=== PATIENT | male | born 1965 | race Caucasian/White ===

== ENCOUNTER → 2021-11-29 11:02 | Outpatient (CLI) | payer SELFPAY ==
[2021-11-29 20:13] LABS: Free T3, Triiodothyronine Free 3.58 pg/mL (2.77-5.27)
[2021-11-29 20:27] LABS: TSH w/ Reflex to FT4 0.46 uIU/mL (0.47-4.68)
[2021-11-30 01:41] LABS: Free T4, Direct Thyroxine 1.53 ng/dL (0.78-2.19)
== END ==
PROVIDERS: Family Provider Family Medicine; PCP Family Medicine; Visit Provider Physician Assistant Medical
DX: I63.9 Cerebral infarction, unspecified (principal); F41.9 Anxiety disorder, unspecified
CPT/HCPCS: 84439; 84443; 84481

== ENCOUNTER → 2023-07-02 11:28 | Outpatient (CLI) | payer SELFPAY ==
--- NOTE | 2023-07-02 11:30 | DI.US.S_ITS ---
PROCEDURE: US SCROTUM INDICATIONS: TESTICULAR SWELLING TECHNIQUE: Real-time scanning was performed of the scrotum and testicles, with image documentation. Color and pulse Doppler interrogation was performed of both testicles. COMPARISON: None. FINDINGS: Right: Testicle is normal in size at 3.2 x 2.0 x 2.9 cm, and homogenous in echotexture. Epididymis is normal in overall size and morphology. Small hydrocele. No varicocele. Overlying scrotal skin is normal in thickness. Left: Testicle is normal in size at 3.2 x 2.1 x 2.6 cm, and homogeneous in echotexture. Epididymis is normal in overall size and morphology. Left epididymal cyst measuring 3 mm Small hydrocele. No varicocele. Overlying scrotal skin is normal in thickness. Doppler: Color and pulse Doppler demonstrate normal and symmetric arterial flow in both testicles. IMPRESSION: 1. Sub 5 mm left epididymal cyst; otherwise normal appearance of the testicles bilaterally. 2. Small bilateral hydroceles. Dictated by: Bi VILLAFUERTE Interpreted: Deangelo Turner MD on 07/02/2023 at 12:44 Transcribed by: [email or web address] on 07/02/2023 at 12:44 Approved by: Deangelo Turner M.D. on 07/02/2023 at 16:22
== END ==
PROVIDERS: Family Provider Family Medicine; PCP Physician Assistant Medical; Referring Provider Physician Assistant Medical; Visit Provider Physician Assistant Medical
DX: N50.3 Cyst of epididymis (principal); N43.3 Hydrocele, unspecified; N50.89 Other specified disorders of the male genital organs
CPT/HCPCS: 76870

== ENCOUNTER → 2023-07-09 08:30 | Outpatient (CLI) | payer SELFPAY ==
[2023-07-09 20:00] LABS: Add Manual Diff / Slide Review NO; Basophils Absolute Auto 0 /uL (0-100); Basophils Percent Auto 0.4 % (0-2); Eosinophils Absolute Auto 200 /uL (0-450); Eosinophils Percent Auto 3.9 % (2-4); Hematocrit 45.2 % (41-53); Hemoglobin 15.5 g/dL (13.5-17.5); Lymphocytes Absolute Auto 1900 /uL (1100-4500); Lymphocytes Percent Auto 33.3 % (25-40); Mean Corpuscular HGB Conc 34.4 % (30-36); Mean Corpuscular Hemoglobin 30.7 PG (26-34); Mean Corpuscular Volume 89.2 fL (80-100); Monocytes Absolute Auto 500 /uL (0-900); Monocytes Percent Auto 8.7 % (3-14); Neutrophils Absolute Auto 3100 /uL (1500-7000); Neutrophils Percent Auto 53.7 % (50-75); Platelet Count 208 X10^3/uL (150-400); Red Blood Cell Count 5.07 X10^6/uL (4.5-5.9); White Blood Cell Count 5.8 X10^3/uL (4.5-11.0)
[2023-07-09 20:19] LABS: Alanine Aminotransferase 84 IU/L (<50); Albumin 4.4 g/dL (3.5-5.0); Albumin Globulin Ratio 1.4 (1.0-2.8); Alkaline Phosphatase 61 U/L (38-126); Aspartate Aminotransferase 43 IU/L (17-59); BUN Creatinine Ratio 15.8 (6-22); Blood Urea Nitrogen 15 mg/dL (9-20); Calcium 9.8 mg/dL (8.4-10.2); Carbon Dioxide 31 mmol/L (22-32); Chloride 98 mmol/L (98-107); Cholesterol 183 mg/dL (140-199); Estimated Glomerular Filt Rate > 60 mL/min (>60); Globulin 3.2 g/dL (1.7-4.1); Glucose 83 mg/dL (70-100); HDL Cholesterol 54 mg/dL (40-60); HEMOLYSIS < 15 (0-50); LDL Cholesterol Calculated 83 mg/dL (<100); Potassium 4.5 mmol/L (3.4-5.1); Sodium 136 mmol/L (137-145); Total Protein 7.6 g/dL (6.3-8.2); Triglycerides 229 mg/dL (35-150)
[2023-07-09 20:40] LABS: TSH w/ Reflex to FT4 4.58 uIU/mL (0.47-4.68)
[2023-07-09 20:44] LABS: Prostate Specific Antigen Scrn 0.573 ng/mL (0.1-4.0)
== END ==
PROVIDERS: Family Provider Family Medicine; PCP Physician Assistant Medical; Visit Provider Physician Assistant Medical
DX: Z12.11 Encounter for screening for malignant neoplasm of colon (principal); E78.00 Pure hypercholesterolemia, unspecified; I10 Essential (primary) hypertension; I63.512 Cerebral infarction due to unspecified occlusion or stenosis of left middle cerebral artery; Z12.5 Encounter for screening for malignant neoplasm of prostate
CPT/HCPCS: 80053; 80061; 84443; 85025; G0103

== ENCOUNTER → 2023-07-11 15:00 | Outpatient (CLI) | payer SELFPAY ==
[2023-07-16 08:57] LABS: Fecal Immunochemical Test Negative (Negative)
== END ==
LOC: LAB 08-21 12:36
PROVIDERS: Family Provider Family Medicine; PCP Physician Assistant Medical; Referring Provider Physician Assistant Medical; Visit Provider Physician Assistant Medical
DX: Z12.11 Encounter for screening for malignant neoplasm of colon (principal)
CPT/HCPCS: 82274